=== PATIENT | male | born 2000 | race Caucasian/White ===

== ENCOUNTER 2023-11-03 10:33 | Emergency (ER) | payer BC, OTHER ==
[2023-11-03 10:39] VITALS: BP 146/75; PULSE 91; RESP 18; TEMP 98; BMI 23.7
[2023-11-03] MEDS ORDERED: KETOROLAC TROMETHAMINE 30 MG/1 ML VIAL ONE (12:04)
[2023-11-03] MEDS: KETOROLAC TROMETHAMINE 30 MG/1 ML VIAL IVPUSH ONE (12:11)
[2023-11-03 12:43] LABS: BASO % 0.3 % (0-2.0); EOS % 0.5 % (0-4.5); HEMATOCRIT 46.2 % (35.4-49); HEMOGLOBIN 15.8 GM/dL (11.7-16.9); LYMPH % 20.3 % (8-40); MCH 28.9 pg (25.7-33.7); MCHC 34.2 g/dl (32.0-35.9); MEAN CELL VOLUME 84.7 fl (80-96); MEAN PLT VOLUME 8.3 fl (7.5-11.1); MONO % 12.1 % (3.8-10.2); NEUT % 66.8 % (42.8-82.8); PLATELET COUNT 320 10^3/uL (134-434); RBC 5.46 M/mm3 (4.00-5.60); RDW 13.2 % (11.9-15.9); WHITE BLOOD COUNT 12.7 K/mm3 (4.0-10.0)
[2023-11-03 13:09] LABS: POTASSIUM 5.1 mmol/L (3.5-5.1)
[2023-11-03 13:10] LABS: CALCIUM 10.1 mg/dL (8.5-10.1)
[2023-11-03 13:11] LABS: BLOOD UREA NITROGEN 14.3 mg/dL (7-18)
[2023-11-03 13:14] LABS: CREATININE 1.1 mg/dL (0.55-1.3)
== END 2023-11-03 17:36 | disposition home or self-care (01) ==
LOC: JERFT 10:33
PROC: 3E0333Z Introduction of Anti-inflammatory into Peripheral Vein, Percutaneous Approach (ICD-10-PCS; principal; 2023-11-03)
DX: H60.391 Other infective otitis externa, right ear (principal); H92.01 Otalgia, right ear
CPT/HCPCS: 36415; 70491-TC; 80048; 85025; 99285-25

== ENCOUNTER 2024-02-12 17:00 | Emergency (ER) | payer SELFPAY ==
[2024-02-12 17:06] VITALS: BP 143/84; PULSE 91; RESP 18; TEMP 99; BMI 29.8
== END 2024-02-12 19:31 | disposition home or self-care (01) ==
LOC: JER 17:00
DX: R29.810 Facial weakness (principal)
CPT/HCPCS: 99283-25